=== PATIENT | female | born 1960 | race African-American/Black ===

== ENCOUNTER 2018-10-13 12:25 | Observation (INO) ==
[2018-10-13] MEDS ORDERED: ONDANSETRON 4 MG/2 ML VIAL IV STA (12:56)
[2018-10-13] MEDS ORDERED: HYDROmorphone 2 MG/1 ML VIAL IV STA (12:56)
[2018-10-13] MEDS ORDERED: LACTATED RINGERS 500 ML IV STA (12:56)
[2018-10-13 13:28] LABS: Basophils % 0.3 % (0.0-0.8); Eosinophils # 0.1 10*3/uL (0.0-0.87); Eosinophils % 1.7 % (0.00-10.9); Hematocrit 42.7 VOL% (35.7-47.0); Hemoglobin 13.6 GM/DL (12.0-16.0); Immature Granulocytes % 0.1 %; Immature Granulocytes Absolute 0.01 #; Lymphocytes # 2.1 10*3/uL (1.4-4.0); Lymphocytes % 30.2 % (21.3-54.2); Mean Corpuscular HGB Conc 31.9 GM/DL (32-36); Mean Corpuscular Hemoglobin 27 PG (27-34); Mean Corpuscular Volume 85.9 FL (87-102); Mean Platelet Volume 10.1 FL (9.6-12.0); Monocytes # 0.4 10*3/uL (0.11-0.8); Monocytes % 5.5 % (1.7-12.7); Neutrophils # 4.3 10*3/uL (1.4-7.4); Neutrophils % 62.2 % (38.7-73.9); Platelet Count 254 T/CUMM (130-400); Red Blood Count 4.97 MC/CUMM (3.8-5.5); Red Cell Distribution Width 14.7 % (9.3-17.3); White Blood Count 6.9 T/CUMM (4-12)
[2018-10-13 13:42] LABS: Apearance,Urine CLEAR (Clear); Bilirubin,Urine Negative (Negative); Blood, Urine Small mg/dL (Negative); Glucose,Urine (UA) Negative (Negative); Ketones,Urine Negative (Negative); Mucus,Urine Occasional /LPF (Occasional); Nitrite,Urine Negative (Negative); Protein,Urine 30 MG/DL; RBC,Urine 1 /HPF (0-4); Urine Color Straw (Yellow); Urine Specific Gravity 1.006 (1.001-1.035); Urine Urobilinogen < 2.0 EU/DL (0.2-1.0); WBC,Urine 1 /HPF (0-6)
[2018-10-13 13:45] LABS: Barbiturates Screen,Urine Negative (Negative); Benzodiazepines Screen,Urine Negative (Negative); Cannabinoid Screen,Urine Negative (Negative); Opiate Screen,Urine Negative (Negative); Phencyclidine Screen,Urine Negative (Negative)
[2018-10-13 13:49] LABS: Alanine Aminotransferase 20 U/L (13-56); Albumin 3.9 G/DL (3.4-5.0); Alkaline Phosphatase 72 U/L (45-117); Amylase 80 U/L (25-115); Aspartate Amino Transferase 17 U/L (0-37); Blood Urea Nitrogen 16 MG/DL (7-18); Glucose 91 MG/DL (74-106); Osmolality,Calculated 277.5 MOS/KG (273-304); Potassium 3.8 MMOL/L (3.5-5.1); Sodium 139 MMOL/L (136-145); Total Protein 8.1 G/DL (6.4-8.3)
[2018-10-13 13:50] LABS: Troponin I 0.235 NG/ML (0.00-0.045)
[2018-10-13] MEDS ORDERED: MORPHINE 4 MG/1 ML VIAL IV PRN (15:44)
[2018-10-13] MEDS ORDERED: MAGNESIUM SULF RIDER 4 GM in PREMIX 1 EACH IV PRN (15:44)
[2018-10-13] MEDS ORDERED: MAGNESIUM SULF RIDER 2 GM in PREMIX 1 EACH IV PRN (15:44)
[2018-10-13] MEDS ORDERED: ACETAMINOPHEN 325 MG TABLET PO PRN (15:44)
[2018-10-13] MEDS ORDERED: ZALEPLON 5 MG CAPSULE PO PRN (15:44)
[2018-10-13] MEDS ORDERED: ONDANSETRON 4 MG/2 ML VIAL IV PRN (15:44)
[2018-10-13] MEDS ORDERED: BISACODYL 5 MG TABLET PO PRN (15:44)
[2018-10-13] MEDS ORDERED: KETOROLAC 30 MG/1 ML VIAL IV STA (15:46)
[2018-10-13 17:31] LABS: CKMB % 2.6 %
[2018-10-13] MEDS: CARVEDILOL 6.25 MG TABLET PO SCH (20:38)
[2018-10-13 21:18] LABS: CKMB % 2.1 %
[2018-10-13 21:26] LABS: Troponin I 2.17 NG/ML (0.00-0.045)
[2018-10-13 23:30] LABS: CKMB % 1.8 %
[2018-10-13 23:31] LABS: Troponin I 2.02 NG/ML (0.00-0.045)
[2018-10-14 04:13] LABS: Troponin I 1.34 NG/ML (0.00-0.045)
[2018-10-14 05:14] LABS: Basophils % 0.4 % (0.0-0.8); Eosinophils # 0.2 10*3/uL (0.0-0.87); Eosinophils % 2.5 % (0.00-10.9); Hematocrit 37.6 VOL% (35.7-47.0); Hemoglobin 11.9 GM/DL (12.0-16.0); Immature Granulocytes % 0.1 %; Immature Granulocytes Absolute 0.01 #; Lymphocytes # 2.5 10*3/uL (1.4-4.0); Lymphocytes % 35.3 % (21.3-54.2); Mean Corpuscular HGB Conc 31.6 GM/DL (32-36); Mean Corpuscular Hemoglobin 27 PG (27-34); Mean Corpuscular Volume 85.8 FL (87-102); Mean Platelet Volume 10.6 FL (9.6-12.0); Monocytes # 0.6 10*3/uL (0.11-0.8); Monocytes % 8.4 % (1.7-12.7); Neutrophils # 3.8 10*3/uL (1.4-7.4); Neutrophils % 53.3 % (38.7-73.9); Platelet Count 230 T/CUMM (130-400); Red Blood Count 4.38 MC/CUMM (3.8-5.5); Red Cell Distribution Width 14.8 % (9.3-17.3); White Blood Count 7.1 T/CUMM (4-12)
[2018-10-14 05:30] LABS: Bilirubin,Total 0.9 MG/DL (0.2-1.0); Calcium 8.6 MG/DL (8.5-10.1); Osmolality,Calculated 283.1 MOS/KG (273-304); Potassium 3.6 MMOL/L (3.5-5.1); Total Protein 6.8 G/DL (6.4-8.3)
[2018-10-14] MEDS ORDERED: LEVOTHYROXINE 75 MCG TABLET PO SCH (06:30)
[2018-10-14] MEDS ORDERED: ASPIRIN EC 81 MG TABLET PO SCH (09:00)
[2018-10-14] MEDS ORDERED: SACUBITRIL/VALSARTAN 49-51 MG TABLET PO SCH (09:00)
[2018-10-14] MEDS ORDERED: hydroCHLOROthiazide 25 MG TABLET PO SCH (09:00)
[2018-10-14] MEDS ORDERED: PANTOPRAZOLE 40 MG TABLET PO SCH (09:00)
[2018-10-14] MEDS ORDERED: MELOXICAM 7.5 MG TABLET PO SCH (09:00)
[2018-10-14] MEDS ORDERED: ESTRADIOL 1 MG TABLET PO SCH (09:00)
[2018-10-14] MEDS: CARVEDILOL 6.25 MG TABLET PO SCH (09:24)
[2018-10-14 12:06] VITALS: BP 132/71
== END 2018-10-14 14:20 | disposition home or self-care (01) ==
LOC: EDUNIT# → N.EDINP 12:25 → N.ED 12:25 → N.TELES 18:07
PROVIDERS: ADMIT Internal Medicine Cardiovascular Disease; ATTEND Internal Medicine Cardiovascular Disease

== ENCOUNTER 2019-05-22 18:44 | Observation (INO) ==
[2019-05-22 20:32] LABS: Basophils % 0.3 % (0.0-0.8); Eosinophils # 0.2 10*3/uL (0.0-0.87); Hematocrit 41.2 VOL% (35.7-47.0); Hemoglobin 13.2 GM/DL (12.0-16.0); Immature Granulocytes % 0.2 %; Immature Granulocytes Absolute 0.02 #; Lymphocytes # 2.9 10*3/uL (1.4-4.0); Lymphocytes % 33.9 % (21.3-54.2); Mean Corpuscular Volume 89.4 FL (87-102); Mean Platelet Volume 10.7 FL (9.6-12.0); Monocytes % 8.4 % (1.7-12.7); Neutrophils % 55.2 % (38.7-73.9); Platelet Count 199 T/CUMM (130-400); Red Blood Count 4.61 MC/CUMM (3.8-5.5); Red Cell Distribution Width 14.2 % (9.3-17.3); White Blood Count 8.6 T/CUMM (4-12)
[2019-05-22 20:40] LABS: Apearance,Urine CLEAR (Clear); Bilirubin,Urine Negative (Negative); Blood, Urine Small mg/dL (Negative); Glucose,Urine (UA) Negative (Negative); Ketones,Urine Negative (Negative); Mucus,Urine Occasional /LPF (Occasional); Nitrite,Urine Negative (Negative); Protein,Urine Negative; RBC,Urine 2 /HPF (0-4); Squamous Epithelial Cell,Urine Occasional /HPF (0-10); Urine Color Straw (Yellow); Urine Specific Gravity 1.013 (1.001-1.035); Urine Urobilinogen < 2.0 EU/DL (0.2-1.0); WBC,Urine <1 /HPF (0-6)
[2019-05-22 20:46] LABS: Barbiturates Screen,Urine Negative (Negative); Benzodiazepines Screen,Urine Negative (Negative); Cannabinoid Screen,Urine Negative (Negative); Opiate Screen,Urine Negative (Negative); Phencyclidine Screen,Urine Negative (Negative)
[2019-05-22 21:01] LABS: Alanine Aminotransferase 19 U/L (13-56); Albumin 3.3 G/DL (3.4-5.0); Alkaline Phosphatase 60 U/L (45-117); Aspartate Amino Transferase 15 U/L (0-37); Bilirubin,Total < 0.39 MG/DL (0.2-1.0); Blood Urea Nitrogen 18 MG/DL (7-18); Calcium 8.8 MG/DL (8.5-10.1); Glucose 91 MG/DL (74-106); Osmolality,Calculated 287.8 MOS/KG (273-304); Total Protein 7.2 G/DL (6.4-8.3)
[2019-05-22 21:07] LABS: Thyroid Stimulating Hormone 0.629 uIU/ml (0.358-3.74)
[2019-05-22 21:09] LABS: Troponin I 0.072 NG/ML (0.00-0.045)
[2019-05-22] MEDS ORDERED: ONDANSETRON 4 MG/2 ML VIAL IV PRN (23:07)
[2019-05-22] MEDS ORDERED: ACETAMINOPHEN 325 MG TABLET PO PRN (23:07)
[2019-05-22] MEDS ORDERED: hydrALAZINE 20 MG/1 ML VIAL IV PRN (23:24)
[2019-05-23 03:21] LABS: Basophils % 0.2 % (0.0-0.8); Eosinophils # 0.2 10*3/uL (0.0-0.87); Eosinophils % 2.2 % (0.00-10.9); Hematocrit 40.5 VOL% (35.7-47.0); Hemoglobin 12.7 GM/DL (12.0-16.0); Immature Granulocytes % 0.4 %; Immature Granulocytes Absolute 0.03 #; Lymphocytes # 2.7 10*3/uL (1.4-4.0); Mean Corpuscular HGB Conc 31.4 GM/DL (32-36); Mean Corpuscular Volume 88.4 FL (87-102); Monocytes % 7.2 % (1.7-12.7); Platelet Count 183 T/CUMM (130-400); Red Blood Count 4.58 MC/CUMM (3.8-5.5); White Blood Count 8.1 T/CUMM (4-12)
[2019-05-23 03:38] LABS: Alanine Aminotransferase 18 U/L (13-56); Albumin 2.8 G/DL (3.4-5.0); Alkaline Phosphatase 59 U/L (45-117); Aspartate Amino Transferase 12 U/L (0-37); Bilirubin,Total < 0.39 MG/DL (0.2-1.0); Blood Urea Nitrogen 16 MG/DL (7-18); Calcium 8.3 MG/DL (8.5-10.1); Glucose 131 MG/DL (74-106); Total Protein 6.7 G/DL (6.4-8.3)
[2019-05-23] MEDS ORDERED: ENOXAPARIN 80 MG/0.8 ML SYRINGE SUBCUT ONE (06:44)
[2019-05-23] MEDS ORDERED: LEVOTHYROXINE 75 MCG TABLET PO SCH (07:30)
[2019-05-23] MEDS ORDERED: SACUBITRIL/VALSARTAN 49-51 MG TABLET PO SCH (09:00)
[2019-05-23] MEDS ORDERED: ASPIRIN EC 81 MG TABLET PO SCH (09:00)
[2019-05-23] MEDS ORDERED: MAGNESIUM CHLORIDE 64 MG TABLET PO SCH (09:00)
[2019-05-23] MEDS ORDERED: CARVEDILOL 6.25 MG TABLET PO SCH (09:00)
[2019-05-23] MEDS ORDERED: PANTOPRAZOLE 40 MG TABLET PO SCH (09:00)
[2019-05-23] MEDS ORDERED: hydroCHLOROthiazide 25 MG TABLET PO SCH (09:00)
[2019-05-23] MEDS ORDERED: ENOXAPARIN 40 MG/0.4 ML SYRINGE SUBCUT SCH (09:00)
[2019-05-23 16:27] VITALS: BP 120/59
== END 2019-05-23 17:00 | disposition home or self-care (01) ==
LOC: N.EDINP 18:44 → N.ED 18:44 → N.TELEN 05-23 00:12
PROVIDERS: ADMIT Internal Medicine; ATTEND Internal Medicine